=== PATIENT | female | born 1995 ===

== ENCOUNTER → 2019-07-13 | Outpatient (CLI) | payer OTHER ==
--- NOTE | 2019-07-13 10:09 | RADIOLOGY REPORT (SQ) ---
EXAM DESCRIPTION: DUPLEX ART/BIGG FLOW COMPLETE COMPLETED DATE/TIME: 07/13/2019 8:26 am REASON FOR STUDY: RATNA (I70.1) I70.1 ATHEROSCLEROSIS OF RENAL ARTERY COMPARISON: None. TECHNIQUE: Realtime and static grayscale images acquired. Selected color Doppler, velocities and spe ctral images recorded. LIMITATIONS: Limited due to bowel gas. FINDINGS: RIGHT KIDNEY: RENAL ARTERY VELOCITIES: Origin not visualized. Mid renal artery 186 cm/sec. Hilum 90 cm/sec. Seg mental artery velocity 102 cm/sec. RENAL VEIN: Color doppler flow present, patent. VELOCITY RATIO: 1.8. Normal waveforms. KIDNEY: Normal in size measuring 11.9 cm No significant pathology. LEFT KIDNEY: RENAL ARTERY VELOCITIES: Origin Origin 115 cm/s. Mid renal artery 130 cm/sec. Hilum 82 cm/sec. Se gmental artery velocity 53 cm/sec. RENAL VEIN: Color doppler flow present, patent. VELOCITY RATIO: 1.3. Normal waveforms. KIDNEY: Normal size. No significant pathology. BLADDER: Normal. OTHER: No other significant finding. IMPRESSION: NO DOPPLER EVIDENCE OF HEMODYNAMICALLY SIGNIFICANT RENAL ARTERY STENOSIS. COMMENT: NORMAL RENAL ARTERY/AORTA VELOCITY RATIO IS LESS THAN OR EQUAL TO 3.5. TECHNICAL DOCUMENTATION: JOB ID: [id number] [employer]- All Rights Reserved Reading location - IP/workstation name: [email or web address]
== END ==
LOC: RAD 07:19
PROVIDERS: ATTEND Student in an Organized Health Care Education/Training Program
DX: I70.1 Atherosclerosis of renal artery (principal)
CPT/HCPCS: 93975